=== PATIENT | male | born 1985 | race Caucasian/White ===

== ENCOUNTER → 2018-10-06 04:58 | Emergency (ER) | payer SELFPAY ==
[2018-10-06 05:03] VITALS: BP 130/94
--- NOTE | 2018-10-06 05:20 | ED ---
Medical Screening - HPI Summary HPI Summary: This patient is a 33 year old male brought in by law enforcement for a legal blood draw. The patient has no medical complaint. - History of Current Complaint Chief Complaint: EDGeneral Stated Complaint: BLOOD DRAW PER POLICE PMH/Surg Hx/FS Hx/Imm Hx Endocrine/Hematology History: Denies: Hx Diabetes Cardiovascular History: Denies: Hx Coronary Artery Disease Infectious Disease History: No Infectious Disease History: Denies: Traveled Outside the [place] in Last 30 Days - Family History Known Family History: Negative: Renal Disease Review of Systems Negative: Fever Negative: Shortness Of Breath All Other Systems Reviewed And Are Negative: Yes Physical Exam - Summary Physical Exam Summary: Appearance: Well-appearing, Well-nourished, lying in bed comfortable Skin: Warm, dry, no obvious rash Eyes: sclera anicteric, no conjunctival pallor ENT: mucous membranes moist Neck: deferred Respiratory: No signs of respiratory distress Cardiovascular: Appears well perfused, pulses are nml Abdomen: deferred Musculoskeletal: Moving all 4 extremities without obvious discomfort Neurological: Awake and alert, mentation is normal, speech is fluent and appropriate Psychiatric: affect is normal, does not appear anxious or depressed Triage Information Reviewed: Yes Vital Signs On Initial Exam: Initial Vitals Temp Pulse Resp BP Pulse Ox 99.4 F 108 20 130/94 99 10/06/18 05:00 10/06/18 05:00 10/06/18 05:00 10/06/18 05:00 10/06/18 05:00 Vital Signs Reviewed: Yes Diagnostics - Vital Signs Vital Signs Temp Pulse Resp BP Pulse Ox 10/06/18 05:00 99.4 F 108 20 130/94 99 - Laboratory Lab Statement: Any lab studies that have been ordered have been reviewed, and results considered in the medical decision making process. Course/Dx - Course Course Of Treatment: This patient is a 33 year old male brought in by law enforcement for a legal blood draw. The patient has no medical complaint. The patient will be discharged following the blood draw. The patient is agreeable with this plan. - Diagnoses Provider Diagnoses: Blood drug testing for medicolegal reasons Discharge - Sign-Out/Discharge Documenting (check all that apply): Patient Departure - Discharge Patient Received Moderate/Deep Sedation with Procedure: No - Discharge Plan Condition: Good Disposition: HOME Referrals: No Primary Care Phys,[facility]OPCP [Primary Care Provider] - - Billing Disposition and Condition Condition: GOOD Disposition: Home - Attestation Statements Document Initiated by Pradeep: Yes Documenting Scribe: Edgard Polk Provider For Whom Pradeep is Documenting (Include Credential): Bakari Yu MD Scribulisses Attestation: Edgard Valenzuela, scribed for Bakari Yu MD on 10/09/18 at 1923. Scribe Documentation Reviewed: Yes Provider Attestation: The documentation as recorded by the Edgard tinoco accurately reflects the service I personally performed and the decisions made by me, Bakari Yu MD Status of Scribe Document: Viewed
== END | disposition home or self-care (01) ==
LOC: ED 04:58
DX: Z04.89 Encounter for examination and observation for other specified reasons (principal)
CPT/HCPCS: 99281